=== PATIENT | male | born 1935 | race Caucasian/White ===

== ENCOUNTER 2018-01-21 16:50 | Emergency (ER) | payer MEDICARE ==
[~2018-01-21] VITALS: Ht 165.1 cm; Wt 80.0 kg
[2018-01-21] MEDS ORDERED: MELOXICAM7.5 MG PO (17:04)
[2018-01-21] MEDS ORDERED: ASPIRIN 8181 MG PO (17:04)
[2018-01-21] MEDS ORDERED: LIPITOR20 MG PO (17:05)
[2018-01-21] MEDS ORDERED: FINASTERIDE5 MG PO (17:05)
[2018-01-21] MEDS ORDERED: VALTREX1 GM PO (17:13)
[2018-01-21 17:33] VITALS: BP 112/69
== END 2018-01-21 17:33 | disposition home or self-care (01) ==
LOC: ED 16:50
DX: L30.9 Dermatitis, unspecified (principal); E78.5 Hyperlipidemia, unspecified